=== PATIENT | female | born 1935 | race Hispanic/Latino ===

== ENCOUNTER → 2018-01-08 | Outpatient (CLI) | payer MEDICARE ==
--- NOTE | 2018-01-09 08:18 | Diagnostic Imaging Report ---
PROCEDURE:X-RAY MODIFIED BARIUM SWALLOW COMPARISON:None. INDICATIONS:Not provided. DISCUSSION:Fluoroscopic examination was performed in conjunction with speech pathology, during swallowing of a variety of thin and thick liquid consistencies. CONCLUSION:No penetration or aspiration. Please see the report from speech pathology for complete details. Dictated by: Tanvir Miller M.D. on 01/09/2018 at 8:25 Electronically approved by: Tanvir Miller M.D. on 01/09/2018 at 8:25
== END ==
LOC: DX 10:58
PROVIDERS: ATTEND Internal Medicine Critical Care Medicine
DX: J69.0 Pneumonitis due to inhalation of food and vomit (principal)
CPT/HCPCS: 74230; 92611; G8996; G8997; G8998